=== PATIENT | female | born 1940 | race Caucasian/White ===

== ENCOUNTER → 2016-06-17 09:32 | Outpatient (CLI) | payer MEDICARE, OTHER ==
[2016-01-29 07:54] VITALS: BMI 20.8
[~2016-06-17 09:32] MED LIST: CELEXA20 MG PO; LISINOPRIL10 MG PO; PRAVACHOL20 MG PO; SYNTHROID50 MCG PO
== END | disposition home or self-care (01) ==
LOC: D.CT 06-16 10:30
DX: J32.9 Chronic sinusitis, unspecified (principal)

== ENCOUNTER 2016-09-23 12:40 | Outpatient (CLI) | payer MEDICARE, OTHER ==
[~2016-09-23] VITALS: Ht 165.1 cm; Wt 57.3 kg
--- NOTE | ~2016-09-23 | HEMODYNAMI ---
PATIENT:ALEXEY FAJARDO MEDICAL RECORD: [id number] : 44 LOCATION:[facility] D.2121 ADMISSION DATE: 09/23/16 Generatedon:09/24/201611:27 Patient name: ALEXEY FAJARDO Patient #: [id number] SSN: [id number] : 1940 Date of study: 09/24/2016 Page: Of Hemodynamic Procedure Report Patient Data Patient Demographics Procedure consent was obtained First Name: ALEXEY Gender: Female Last Name: SCOTTY : 1940 Middle Initial: THERON Age: 75 year(s) Patient #: [id number] Race: Unknown SSN: [id number] Additional ID: [id number] Contact details [address]: [address] [place] [address] State: [place] City: [place] Zip code: [address] Past Medical History Allergies Allergen Reaction Date Comments Reported Other allergy 09/24/2016 [facility] Admission Admission Data Admission Date: 09/23/2016 Admission Time: 13:32 Arrival Date: 09/24/2016 Arrival Time: 0:00 Admit Source: Other Room #: D.2121 Height (in.): 65 BSA: 1.63 (m2) Height (cm.): 165.1 BMI: 20.97 (kg/m2) Weight (lbs.): 126 Weight (kg.): 57.15 Lab Results Lab Result Date: 09/24/2016 Lab Result Time: 0:00 Biochemistry Name Units Result Min Max BUN mg/dl 11 --(-*--)-- 7 18 Creatinine mg/dl 0.8 --(-*--)-- 0.6 1.3 Creatinine l 28 --(*---)-- 21 215 Kinase Troponin l ng/ml 0.016 --(-*--)-- 0 0.06 CBC Name Units Result Min Max Hemoglobin g/dl 14.2 --(*---)-- 13.5 17.5 Procedure Procedure Types Cath Procedure Diagnostic Procedure [facility] w/Coronaries PCI Procedure Coronary Stent Initial Miscellaneous Procedures Moderate Sedation up to 15 minutes Peripheral Cath Diagnostic Procedure Cath Peripheral Renal Arteriogram Procedure Description Procedure Date Procedure Date: 09/24/2016 Procedure Start Time: 10:41 Procedure End Time: 11:14 Procedure Staff Name Function Mac Bardales MD Performing Physician Francia Clayton RT Scrub Meli Hampton RN Nurse Rica Landeros RT Monitor Procedure Data Cath Procedure Entry Location Entry Primary Successful Side Size Upsize Upsize Entry Closure Jeronimo ccessful Closure Location (Fr) 1 (Fr) 2 (Fr) Remarks Device Remarks Radial Right 5 Fr Mechanical TR artery Compression Femoral Right 6 Fr Exoseal artery Short Femoral Left 6 Fr Exoseal artery Short Estimated blood loss: 10 ml Diagnostic catheters Device Type Used For End Catheter Placement MEDSEEK Dexterity 5Fr LV Angiography TRAP 3.5 catheter (NO CHARGE) Diagnostic 5Fr IMT Procedure Catheter Procedure Complications No complications Procedure Medications Medication Administration Route Dosage Oxygen NC 2 l/min Lidocaine 2% added to field 20 Heparin Flush Bag added to field 2 bags (1000units/500ml NS) 0.9% NaCl I.V. 100 ml/hr Radial Cocktail I.A. 1 syringe (Verapomil 2mg/Nitro 400mcg/Heparin 1500units) Versed I.V. 1 mg Fentanyl I.V. 50 mcg Heparin Bolus I.V. 4000 units Integrilin (Bolus I.V. 5 ml 2mg/ml) Plavix P.O. 600 mg Versed I.V. 0.5 mg Fentanyl I.V. 25 mcg Aspirin P.O. 325 mg Hemodynamics Rest BSA: 1.63 (m2) HGB: 14.2 (g/dl) O2 Consumption: Estimated: 145.83 (ml/min) O2 Co nsumption indexed: Estimated:89.47 (ml/min/m) Heart Rate: 65 (bpm) Snapshots Pre Cath Intra NCS Post Cath Vital Signs Time Heart Resp SPO2 NIBP (mmHg) Rhythm Pain Sedation Rate (ipm) (%) Status Level (bpm) 10:26:19 63 19 98 156/69(124) NSR 0 (11) 10(A) , No pain 10:30:39 65 25 98 140/68(87) NSR 0 (11) 10(A) , No pain 10:34:59 63 19 96 120/51(93) NSR 0 (11) 10(A) , No pain 10:39:07 67 15 95 110/63(89) NSR 0 (11) 10(A) , No pain 10:43:15 74 17 97 127/49(96) NSR 0 (11) 9(A) , No pain 10:47:29 77 19 96 111/53(79) NSR 0 (11) 9(A) , No pain 10:51:37 78 17 96 91/50(65) NSR 0 (11) 9(A) , No pain 10:55:40 72 16 96 106/48(78) NSR 0 (11) 9(A) , No pain 10:59:46 71 19 95 106/53(81) NSR 0 (11) 9(A) , No pain 11:03:52 82 22 95 124/55(75) NSR 0 (11) 9(A) , No pain 11:08:04 81 19 95 117/52(82) NSR 0 (11) 9(A) , No pain 11:12:14 82 16 96 104/50(72) NSR 0 (11) 10(A) , No pain Medications Time Medication Route Dose Verified Delivered Reason Note s Effectiveness by by 10:31:08 Oxygen NC 2 l/min Mac Buffie used for Catia Hampton RN procedure 10:31:17 Lidocaine 2% added 20ml Mac Buffie for local to vial Catia Hampton RN anesthetic field 10:31:23 Heparin Flush added 2 bags Mac Buffie used for Bag to Catia Hampton RN procedure (1000units/500ml field NS) 10:31:33 0.9% NaCl I.V. 100 Mac Buffie Per physician ml/hr Catia Hampton RN 10:41:03 Fentanyl I.V. 50 mcg Mac Garrison for sedation Catia Hampton RN 10:41:58 Versed I.V. 1 mg Mac Buffie for sedation Catia Hampton RN 10:42:49 Radial Cocktail I.A. 1 Mac Watts for (Verapomil syringe Catia Bardales MD vasodilation 2mg/Nitro 400mcg/Heparin 1500units) 10:49:34 Versed I.V. 0.5 mg Mac Buffie for sedation Catia Hampton RN 10:49:39 Fentanyl I.V. 25 mcg Mac Garrison for sedation Catia Hampton RN 10:58:36 Heparin Bolus I.V. 4000 Mac Garrison for veri fied units Catia Hampton RN anticoagulation with dr bardales 11:00:01 Integrilin I.V. 5 ml Mac Garrison for Wast ed 5 (Bolus 2mg/ml) Catia Hampton RN antiplatelet ml of therapy vial 11:12:15 Plavix P.O. 600 mg Mac Hampton RN antiplatelet therapy 11:21:40 Aspirin P.O. 325 mg Mac Hampton RN antiplatelet therapy Procedure Log Time Note 10:12:42 Patient Weight : 57.15 kg 10:12:49 Patient Height : 165.1 cm 10:13:11 Arrival Date: 09/24/2016 12:00:00 AM 10:24:00 Lab Result : Creatinine Kinase 28 l 10:24:00 Lab Result : Creatinine 0.8 mg/dl 10:24:00 Lab Result : BUN 11 mg/dl 10:24:00 Lab Result : Hemoglobin 14.2 g/dl 10:24:00 Lab Result : Troponin l 0.016 ng/ml 10:24:11 Diagnostic Cath Status : Elective 10:24:31 Admit Source: Other 10:24:36 Meli Hampton RN sent for patient. Start room use. 10:24:38 Time tracking: Regular hours 10:24:43 Plan of Care:Hemodynamics will remain stable., Cardiac rhythm will remain stable., Comfort level will be maintained., Respiratory function will remain adequate., Patient/ family verbilizes understanding of procedure., Procedure tolerated without complication., Recovers from procedure without complications.. 10:24:52 Patient received from Med II to CCL 1 Alert and oriented. Tansferred to table in Supine position. 10:24:55 Warm blankets applied, and elsa hugger turned on for patient comfort. 10:24:56 Correct patient and procedure confirmed by team. 10:24:59 Signed procedure consent form obtained from patient. 10:25:00 ECG and BP/O2 sat monitors applied to patient. 10:25:02 Vital chart was started 10:25:05 Baseline sample Acquired. 10:25:09 Rhythm: sinus rhythm 10:25:11 Full Disclosure recording started 10:25:25 H&P Date Dictated: 09/23/2016 Within 30 days and on chart.. 10:25:26 Pre-procedure instructions explained to patient. 10:25:28 Family in waiting room. 10:25:31 Patient NPO since Midnight. 10:25:43 Patient allergic to Other allergyPCN 10:25:47 Is the patient allergic to Iodine/contrast media? No. 10:25:51 Was the patient premedicated? No 10:25:56 Is patient on blood thinner?Yes 10:25:59 ACC The patient was administered the following blood thiners within the last 24 hours: ACCAspirin 10:26:03 Patient diabetic? No. 10:26:10 Snore? Yes 10:26:12 Sleep apnea? No 10:26:19 Dentures? No ? 10::28 Patient pain scale 0/10 ?. 10:26:38 IV patent on arrival in left antecubital with 0.9% NaCl at [facility]. 10::40 Lab results completed and on chart. 10::45 Right Radial & Right Groin area was prepped with chlora-prep and draped in sterile fashion 10::46 Alarms reviewed by Aisha Moses 10::49 Physician paged 10:31:08 Oxygen 2 l/min NC was administered by Meli Hampton RN; used for procedure; 10:31:17 Lidocaine 2% 20ml vial added to field was administered by Mlei Hampton RN; for local anesthetic; 10:31:23 Heparin Flush Bag (1000units/500ml NS) 2 bags added to field was administered by Meli Hampton RN; used for procedure; 10:31:33 0.9% NaCl 100 ml/hr I.V. was administered by Meli Hampton RN; Per physician; 10:40:08 Physician arrived 10:40:08 --------ALL STOP TIME OUT------ 10:40:09 Final Timeout: patient, procedure, and site verified with staff and physician. All members of the team are in agreement. 10:40:11 Right Radial & Right Groin site verified by team. 10:40:15 Sedation plan: IV Moderate Sedation Versed, Fentanyl 10:40:22 Use device set Radial Dx 10:40:24 Zero performed for pressure channel P1 10:40:39 Zero performed for pressure channel P1 10:40:49 Acist Syringe opened to sterile field. 10:40:50 Medline Cath Pack opened to sterile field. 10:40:50 Bag Decanter opened to sterile field. 10:40:51 Terumo 6Fr Slender Glidesheath opened to sterile field. 10:40:52 St Steve 260cm J .035 wire opened to sterile field. 10:40:53 Acist Hand Control opened to sterile field. 10:40:53 Acist Manifold opened to sterile field. 10:40:54 Tegaderm 4 x 4 opened to sterile field. 10:40:57 Procedure started. 10:41:03 Fentanyl 50 mcg I.V. was administered by Meli Hampton RN; for sedation; 10:41:23 Local anesthetic to right radial artery with Lidocaine 2% by Mac Bardales MD.INITIAL ACCESS ONLY 10:41:34 A 5 Fr sheath was inserted into the Right Radial artery 10:41:58 Versed 1 mg I.V. was administered by Meli Hampton RN; for sedation; 10:42:49 Radial Cocktail (Verapomil 2mg/Nitro 400mcg/Heparin 1500units) 1 syringe I.A. was administered by Mac Bardales MD; for vasodilation; 10:43:16 A MEDSEEK Dexterity 5Fr TRAP 3.5 catheter (NO CHARGE) was advanced over the wire and used for LV Angiography. 10:43:20 LV angiography performed. 10:43:46 EF : 55 % 10:44:00 RCA angiography performed. 10:44:54 Catheter removed. 10:45:49 Medtronic Launcher 6Fr EBU 3.0 SH guide catheter opened to sterile field. 10:46:09 LCA angiography performed. 10:47:43 Catheter removed. 10:49:34 Versed 0.5 mg I.V. was administered by Meli Hampton RN; for sedation; 10:49:39 Fentanyl 25 mcg I.V. was administered by Meli Hampton RN; for sedation; 10:50:15 unable to access renals 10:50:27 Local anesthetic to right femoral artery with Lidocaine 2% by Mac Bardales MD.ADDITIONAL ACCESS 10:50:42 Terumo 6Fr [place] Sheath opened to sterile field. 10:50:53 A 6 Fr Short sheath was inserted into the Right Femoral artery 10:51:32 Nexx Studio BasixCompak Inflation Kit opened to sterile field. 10:51:43 Ochoa Whisper J 300cm 0.014 guide wire opened to sterile field. 10:52:25 Medtronic Launcher 6Fr HS I SH guide catheter opened to sterile field. 10:54:06 Terumo 6Fr [place] Sheath opened to sterile field. 10:54:24 Local anesthetic to left femerol artery with Lidocaine 1% w/epi by Mac Bardales MD.ADDITIONAL ACCESS 10:54:35 A 6 Fr Short sheath was inserted into the Left Femoral artery 10:55:51 J wire advanced. 10:57:24 A Diagnostic 5Fr IMT Catheter was advanced over the wire and used for Procedure. 10:58:29 bilateral renals performed 10:58:36 Heparin Bolus 4000 units I.V. was administered by Meli Hampton RN; for anticoagulation; verified with dr bardales 10:58:45 Catheter removed. 10:59:15 HS! SH advanced 10:59:29 6 Fr HS1 guide catheter was inserted over the wire 10:59:33 Whisper wire advanced. 11:00:01 Integrilin (Bolus 2mg/ml) 5 ml I.V. was administered by Meli Hampton RN; for antiplatelet therapy; Wasted 5 ml of vial 11:00:18 Inflation number: 1 A [place] Sci [place] 3.0 X 15 balloon was prepped and advanced across the Dist RCA, then inflated to 11 [place] for 0:10 (min:sec). 11:00:30 Inflation number: 1 The [place] Sci [place] 3.0 X 15 balloon was reinflated across the Mid RCA, to 11 [place] for 0:10 (min:sec). 11:00:41 Inflation number: 1 The [place] Sci [place] 3.0 X 15 balloon was reinflated across the Prox RCA, to 11 [place] for 0:10 (min:sec). 11:00:52 Balloon removed over the wire. 11:04:29 Inflation Number: 2 A Biofreedom 2.75 x 18 stent was prepped and advanced across the Dist RCA. The stent was deployed at 15 [place] for 0:10 (min:sec). 11:04:48 Stent catheter was removed intact over wire. 11:06:09 Inflation Number: 2 A Biofreedom 3.0 x 28 stent was prepped and advanced across the Mid RCA. The stent was deployed at 15 [place] for 0:10 (min:sec). 11:06:21 Stent catheter was removed intact over wire. 11:11:15 Terumo TR Band Standard opened to sterile field. 11:11:16 Cordis 6Fr Exoseal opened to sterile field. 11:11:17 Cordis 6Fr Exoseal opened to sterile field. 11:11:22 Wire removed. 11:11:23 Guide catheter removed. 11:11:46 Sheath removed intact; hemostasis achieved with Mechanical Compression to the Right Radial artery. 11:11:54 Sheath removed intact; hemostasis achieved with Exoseal to the Right Femoral artery. 11:12:08 Sheath removed intact; hemostasis achieved with Exoseal to the Left Femoral artery. 11:12:15 Plavix 600 mg P.O. was administered by Meli Hampton RN; for antiplatelet therapy; 11:12:17 TR band inflated with 12cc of air. 11:12:18 Insertion/operative site no bleeding no hematoma. 11:12:27 Post right femoral artery:stable 11:12:31 Post left femerol artery:stable 11:12:37 Post right radial artery:stable 11:12:44 Post-procedure physical assessment completed. ASA score P 2 - A patient with mild systemic disease as per Mac Bardales MD. 11:12:49 Post procedure rhythm: unchanged. 11:12:51 Estimated blood loss: 10 ml 11:12:54 Post procedure instruction explained to patient.Patient verbalizes understanding. 11:13:21 Procedure type changed to Cath procedure, Diagnostic procedure, LHC, LHC w/Coronaries, PCI procedure, Coronary Stent Initial, Miscellaneous Procedures, Moderate Sedation up to 15 minutes, Peripheral Cath Diagnostic Procedure, Cath Peripheral, Renal Arteriogram 11:13:23 Procedure and supply charges have been captured, reviewed, submitted and are correct. 11:13:55 Procedure Complication : No complications 11:13:58 Vital chart was stopped 11:14:00 See physician's report for complete and final results. 11:14:02 Report given to [facility]. 11:14:07 Patient transfered to [facility] with Bed. 11:14:09 Procedure ended. 11:14:09 Full Disclosure recording stopped 11:14:13 End room use (Document Last) 11:15:27 Procedure ended.(Physican Out) 11:20:17 ACC-PCI Only Patient was given prescriptions, or instructed by Mac Bardales MD to start/continue the following medications upon discharge: Plavix 11:21:40 Aspirin 325 mg P.O. was administered by Meli Hampton RN; for antiplatelet therapy; 11:22:26 St Steve Femstop Arch Gold opened to sterile field. Intervention Summary Intervention Notes Time ActionType Lesion and Equipment Action# Pressure Duration Attributes Used 11:00:18 Inflate Dist RCA [place] Sci 1 11 00:10 balloon [place] 3.0 X 15 balloon 11:00:30 Reinflate Mid RCA [place] Sci 1 11 00:10 balloon [place] 3.0 X 15 balloon 11:00:41 Reinflate Prox RCA [place] Sci 1 11 00:10 balloon [place] 3.0 X 15 balloon 11:04:29 Place stent Dist RCA Biofreedom 2 15 00:10 2.75 x 18 stent 11:06:09 Place stent Mid RCA Biofreedom 2 15 00:10 3.0 x 28 stent Device Usage Item Name Manufacture Quantity Catalog Number Hospital Part Current Mini mal Lot# / Charge Number Stock Stock Serial# Code Acist Acist 1 [id number] [id number] 278622 20 Syringe Medical Systems Inc Medline Cardinal 1 [id number] 341832 08499 350116 5 Cath Pack Health Bag Microtek 1 2001S 367159 60142 846792 5 Managed Objects Medical Inc. Terumo 6Fr Terumo 1 [id number] 695696 363621 279706 [address] St Steve 1 092049 302705 361436 547258 30 260cm J .035 wire Acist Hand Acist 1 63099 379190 009366 337322 5 Control Medical Systems Inc Acist Acist 1 11231 345842 674401 069240 5 Manifold Medical Systems Inc Tegaderm 4 3M 1 1626W 819092 985342 212511 5 x 4 Medtronic Medtronic 1 [id number] 946954 504516 5 Dexterity 5Fr TRAP 3.5 catheter (NO CHARGE) Medtronic Medtronic 1 [id number] 138730 64673 914626 0 Launcher 6Fr EBU 3.0 SH guide catheter Terumo 6Fr Terumo 2 [id number] 691997 076072 742242 40 [place] Sheath Merit Merit 1 [id number] 218320 671996 403626 15 BasixCompak Medical Inflation Kit Ochoa Ochoa 1 [id number] 749444 379249 084661 5 Whisper J Vascular 300cm 0.014 guide wire Medtronic Medtronic 1 [id number] 763472 18653 913548 1 Launcher 6Fr HS I SH guide catheter Diagnostic [place] 1 [id number] 397437 834810 15341 5 5Fr IMT Scientific Catheter [place] Sci [place] 1 [id number] 079566 624206 827073 1 [id number] CodersClan 3.0 X 15 balloon Biofreedom Biosensors 1 [id number] 275493 344251 5 [id number] 2.75 x 18 [place] SA stent Biofreedom Biosensors 1 [id number] 507255 082959 5 [id number] 3.0 x 28 [place] SA stent Terumo TR Terumo 1 [id number] 173386 338200 809400 40 Band Standard Cordis 6Fr Cardinal 2 EX600 954972 958264 397212 [address] [facility] St Steve 1 [id number] 510388 191317 056573 5 Femstop Arch Gold Signature Audit [place] Stage Time Signature Unsigned Intra-Procedure 09/24/2016 Rica Landeros 11:27:27 AM RT(R) Signatures Monitor : Rica Landeros Signature : RT Date : Time : [address] [place] [address]
[2016-09-23 12:16] LABS: BASOPHILS 0.7 % (0-2); EOSINOPHILS 0.7 % (0-7); HEMATOCRIT 43.4 % (36.0-48.0); HEMOGLOBIN 14.2 g/dL (12-16); IMMATURE GRANULOCYTES 0.2 % (0-5); LYMPHOCYTES 22.3 % (15-50); MCH 28.6 pg (26.0-34.0); MCHC 32.7 g/dL (31.0-37.0); MCV 87.5 fL (80.0-100.0); MEAN PLATELET VOLUME 11.6 fL (7.4-10.4); MONOCYTES 7.5 % (2-11); NEUTROPHILS 68.6 % (40-80); PLATELET COUNT 193 10x3/uL (130-400); RBC 4.96 10x6/uL (4.00-5.40); RDW 13.3 % (11.5-14.5); WBC 4.5 10x3/uL (4.8-10.8)
[2016-09-23 12:32] LABS: ALBUMIN 3.5 g/dL (3.4-5.0); ANION GAP 8.5 mmol/L (8-16); BILIRUBIN - TOTAL 0.32 mg/dL (0.2-1.3); CALCIUM 8.9 mg/dL (8.5-10.1); CARBON DIOXIDE 31.5 mmol/L (21.0-32.0); CREATININE - SERUM 0.8 mg/dL (0.6-1.3); PROTEIN - SERUM 7.5 g/dL (6.4-8.2)
[2016-09-23 12:51] LABS: TROPONIN-I 0.016 ng/mL (0.000-0.060)
[2016-09-23 16:11] LABS: CREATINE KINASE 23 UL (21-215)
[2016-09-23 16:14] LABS: TROPONIN-I < 0.017 ng/mL (0.000-0.060)
--- NOTE | 2016-09-23 16:36 | NUR ---
TRANSFER FRON ER BY W/C. ABRAHAMINTED TO ROOM. CALL LIGHT IN REACH. WILL CONT. PLAN OF CARE.
[2016-09-23 16:49] VITALS: BP 131/49; Ht 165.1 cm; Wt 57.3 kg
[2016-09-23 23:33] VITALS: BP 116/60
--- NOTE | 2016-09-23 23:48 | NUR ---
THIS PM PATIENT AWAKE AND ORIENTED. UP AMB IN ROOM. NO CO CHEST PAIN. NPO FOR INTERNATIONAL PROJECT ENGINEER IN AM.
[2016-09-24 01:32] VITALS: BP 132/69
[2016-09-24 04:16] VITALS: BP 128/48
--- NOTE | 2016-09-24 05:28 | NUR ---
KADEN FLORES GIVEN AND CONSENTS SIGNED FOR CATH.
--- NOTE | 2016-09-24 08:07 | NUR ---
ASSESSMENT DONE. SISTER AT SIDE. DENIES NEEDS.
[2016-09-24 08:33] VITALS: BP 155/54
--- NOTE | 2016-09-24 09:40 | NUR ---
RESTS IN BED ON . FAMILY AT BS. CALL LIGHT IN REACH. WILL CONT. PLAN OF CARE.
--- NOTE | 2016-09-24 09:55 | NUR ---
TO CATH PER BED
--- NOTE | 2016-09-24 11:11 | HP ---
PATIENT: ALEXEY FAJARDO MEDICAL RECORD: [id number] ACCOUNT: [id number] LOCATION:[address] : 44 ADMISSION DATE: 09/23/16 HISTORY AND PHYSICAL EXAMINATION DIAGNOSES: 1. Angina. 2. Hypertensive crisis. 3. Essential hypertension. 4. Hypothyroidism on replacement. HISTORY OF PRESENT ILLNESS: Mrs. Fajardo presents with a dull headache as well as chest pain and jaw pain over the past 2 days, found to have systolic blood pressure in the 190-200 range. She has history of hypertension for which she has been on lisinopril 30 mg. q. day, it has controlled her well until the past 2 days. For no good reason, she has had out of control hypertension associated with the chest pain, jaw pain and headache. She has risk factors for cardiac disease as well as hypertension with hyperlipidemia and strong family history of coronary artery disease. PHYSICAL EXAMINATION: GENERAL APPEARANCE: Well-nourished, well-developed, appears stated age. Level of distress, comfortable. PSYCHIATRIC: Mental status, alert, normal affect. Orientation, oriented to time, place and person. EYES: Lids and conjunctiva, noninjected. No discharge, no pallor. ENT: Lips, teeth, gums, normal dentition. Oropharynx, no cyanosis, no pallor. NECK: Carotid arteries, bilateral normal upstroke, no bruits, no thrills. JUGULAR VEINS: No jugular venous pressure or distention. CERVICAL LYMPH NODES: Nontender, nonenlarged. THYROID: Not enlarged. Nontender. No nodules. LUNGS: Respiratory effort, unlabored. CHEST: Normal curvature. No thoracic deformity. No chest wall tenderness. Percussion, resonant. Auscultation, clear. No wheezes, no rales, no rhonchi. CARDIOVASCULAR: Precordial exam, nondisplaced. No heaves or pericardial thrills. Rate and rhythm, regular. Heart sounds, normal S1, normal S2. No S3, no gallop, no rub. Systolic murmur, not heard. Diastolic murmur, not heard. EXTREMITIES: No cyanosis, no edema. Peripheral pulses, full and equal in all extremities, except as noted. No bruits appreciated. ABDOMEN: Soft, nondistended. Normal aorta. No bruit. Nontender. No masses. Liver, nontender, no hepatomegaly. Spleen, nontender, no splenomegaly. MUSCULOSKELETAL: No joint tenderness. No joint swelling. No erythema. NEUROLOGICAL: Normal gait, normal strength, normal tone. SKIN: Warm and dry. REVIEW OF SYSTEMS: The patient reports easy bruising but reports no swollen glands. The patient reports no fever, no night sweats, no significant weight gain, no significant weight loss. No significant exercise tolerance. The patient reports no dry eyes, no irritation, no vision change. Patient reports no difficulty hearing and no ear pain. Patient reports no frequent nose bleeds or nose and sinus problems. Patient reports on arm pain on exertion. No shortness of breath while lying down. No history of heart murmur. Patient reports no cough, no wheezing or coughing up blood. Patient reports no abdominal pain, no vomiting. Normal appetite. No diarrhea and not vomiting blood. No nausea and no constipation. Patient reports no incontinence. No HISTORY AND PHYSICAL [id number] ALEXEY FAJARDO difficulty urinating. No hematuria. No increased frequency. Patient reports no muscle aches. No weakness, no arthralgias, no back pain. No swelling of the extremities. Patient reports no abnormal mole, no jaundice, no rashes. Reports no loss of consciousness. No weakness and no numbness. No seizures, dizziness, or headaches. The patient reports no depression, no sleep disturbance, feeling safe in a relationship and no alcohol abuse. Patient reports on fatigue. Reports no runny nose or sinus pressure. No itching, no hives, and no frequent sneezing. Cardiovascular review of system, the patient does not have a previous history of PCI, myocardial infarction, CHF. She does not have any history of cancer and no history of bleeding; however, she does take daily NSAIDS in the form of Motrin for osteoarthritis. OVERALL IMPRESSION: Chest pain compatible with angina. At this time, first we will get her blood pressure down. She has been given Apresoline in the ER, her blood pressure still 190 systolic. Her heart rate in the 70s since the beta yuri would not be a great choice. We will give her Procardia-XL 60 in addition to her lisinopril. Most likely, she does have recurrent hemodynamically significant coronary artery disease. We will proceed with coronary angiography in the a.m. Further care depends upon findings of the angiography. TRANSINT:[id number] Voice Confirmation ID: [id number] DOCUMENT ID: [id number] ROSA FONG MD at 1111 CC: [id number] DICTATION DATE: 09/23/16 1251 GENERAL AGENT: 09/23/16 1434 ADM IN [place] [id number] [place] [id number]
--- NOTE | 2016-09-24 11:20 | NUR ---
RETURN FROM CATH PER BED. DRSG TO BILAT GROIN AND TR-BAND TO RT WRIST. PULSES GOOD
[2016-09-24] MEDS ORDERED: IBUPROFEN800 MG PO (11:26)
[2016-09-24] MEDS ORDERED: ASPIRIN81 MG PO (11:46)
[2016-09-24] MEDS ORDERED: PLAVIX75 MG PO (11:46)
[2016-09-24] MEDS ORDERED: NIFEDIPINE ER30 MG PO (11:46)
[2016-09-24 11:53] LABS: CKMB 0.7 U/L (0.0-3.6)
[2016-09-24 13:17] VITALS: BP 102/58
--- NOTE | 2016-09-24 16:18 | NUR ---
ALL DRSG REMOVED. PULSES GOOD. DC GIVEN TO PT AND DAUGHTER .
--- NOTE | 2016-09-24 16:20 | NUR ---
DC HOME PER PERSONAL CAR
--- NOTE | 2016-09-26 16:36 | DS ---
PATIENT:ALEXEY FAJARDO :44 MEDICAL RECORD: [id number] DISCHARGE SUMMARY ADMISSION DATE: 09/23/16 DISCHARGE DATE: 09/24/16 DISCHARGE DIAGNOSES: 1. Angina. 2. Coronary artery disease. 3. Hypertension. HOSPITAL COURSE: Mrs. Fajardo presents with anginal symptomatology, found to have significant disease of the RCA, underwent successful PTCA stent of the RCA. She was discharged home with the addition of aspirin and Plavix and Procardia to her medical regimen. We will follow up with [facility] in 1 month. TRANSINT:[id number] Voice Confirmation ID: [id number] DOCUMENT ID: [id number] ROSA FONG MD at 1636 CC: [id number] DICTATION DATE: 09/24/16 1116 GEOGRAPHIC ANALYST: 09/25/16 0620 DEP CLI 09/24/[address] [address]
--- NOTE | 2016-09-26 16:36 | OP ---
PATIENT NAME: ALEXEY FAJARDO MEDICAL RECORD: [id number] :42 LOCATION:[facility] ADMISSION DATE: SURGEON: ROSA FONG MD DATE OF OPERATION: 09/24/2016 PROCEDURES: 1. PTCA stent RCA. 2. Bilateral selective renal angiography. 3. Left heart catheterization. 4. Selective coronary angiography. 4. Left ventriculogram. INDICATION: Hypertension, recent hypertensive crisis, angina and coronary artery disease. PROCEDURE IN DETAIL: After informed consent was obtained and after a detailed explanation of the risks, benefits as well as alternative therapies, the patient elected to proceed with angiogram and angioplasty. The right femoral area was prepped and draped in normal sterile fashion. The right femoral artery was cannulated via modified Seldinger technique with placement of 6-Spanish sheath. 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 The left femoral area was then prepped and draped in normal sterile fashion. The left femoral artery was cannulated via modified Seldinger technique with placement of 6-Spanish sheath. All catheters were exchanged through this sheath. FINDINGS: 1. The right renal artery is a solitary artery off the aorta. There was no significant renal artery stenosis. No pressure damping at the ostium. 2. The left renal artery is a solitary artery off the aorta. There was no pressure damping. No renal artery stenosis. 3. Left ventriculogram was performed in standard 30-degree DE ANDA view, reveals good cardiac wall motion throughout all segments. Overall ejection fraction estimated at 60%. SELECTIVE CORONARY ANGIOGRAPHY: 1. Left main showed no significant angiographic disease. 2. Left anterior descending has moderate irregularities, but no flow-limiting stenosis. 3. Left circumflex has moderate irregularities, but no flow-limiting stenosis. 4. Right coronary has a 90% stenosis proximally, as well as a 90% stenosis in the mid distal vessel. PTCA STENT OF THE RIGHT CORONARY: The mid distal lesion was 15 mm lesion with BRIT 3 flow at a 2.75 to 3.0 vessel. This was addressed with a 2.75 x 18 mm [employer] stent. Result was 0% residual stenosis throughout. Proximal RCA lesion was an approximately 25 mm in length, BRIT 3 flow before and after at the 3.0 vessel. This was addressed with a 3.0 x 28 mm [employer] stent. Result was 0% residual stenosis. OVERALL IMPRESSION: Successful percutaneous transluminal coronary angioplasty stent of the right coronary artery going from 90% initial stenosis to 0% residual. TRANSINT:[id number] Voice Confirmation ID: [id number] DOCUMENT ID: [id number] OPERATIVE REPORT [id number] ALEXEY FAJARDO JEFFREY MD at 1636 CC: [id number] DICTATION DATE: 09/24/16 1116 [facility]: 09/24/16 1825 [facility] CLI 09/24/16 [id number] [place] [address]
== END 2016-09-24 16:21 | disposition home or self-care (01) ==
LOC: OBSVTIME → D.OPS 12:40 → D.ER 13:32 → D.M2 13:32 → OBSVTIME 13:32 → EDSTATUS 09-24 14:30 → D.M2 09-24 16:21 → D.OPS 09-24 16:21
PROVIDERS: Emergency Medicine
DX: I25.119 Atherosclerotic heart disease of native coronary artery with unspecified angina pectoris (principal); I10 Essential (primary) hypertension; E03.9 Hypothyroidism, unspecified; Z00.6 Encounter for examination for normal comparison and control in clinical research program
CPT/HCPCS: 93458; 36252; C9600

== ENCOUNTER → 2016-10-20 12:18 | Outpatient (CLI) | payer MEDICARE, OTHER ==
[2016-09-23 16:49] VITALS: BMI 21.0
[~2016-10-20 12:18] MED LIST changes: +ASPIRIN81 MG PO; +IBUPROFEN800 MG PO; +NIFEDIPINE ER30 MG PO; +PLAVIX75 MG PO
== END | disposition home or self-care (01) ==
LOC: D.CT 12:18
DX: I65.29 Occlusion and stenosis of unspecified carotid artery (principal)

== ENCOUNTER 2017-07-13 18:01 | Emergency (ER) | payer MEDICARE, OTHER ==
[2016-09-23 16:49] VITALS: BMI 21.0
== END 2017-07-13 20:56 | disposition home or self-care (01) ==
LOC: D.ER 18:01
DX: T54.91XA Toxic effect of unspecified corrosive substance, accidental (unintentional), initial encounter (principal); Y92.012 Bathroom of single-family (private) house as the place of occurrence of the external cause; R11.2 Nausea with vomiting, unspecified; R19.7 Diarrhea, unspecified; R06.02 Shortness of breath

== ENCOUNTER → 2017-08-27 13:50 | Outpatient (CLI) | payer MEDICARE, OTHER ==
[2016-09-23 16:49] VITALS: BMI 21.0
== END | disposition home or self-care (01) ==
LOC: D.MRI 13:50
DX: M25.512 Pain in left shoulder (principal)